=== PATIENT | female | born 1980 | race Caucasian/White ===

== ENCOUNTER 2020-09-24 16:02 | Emergency (ER) | payer OTHER ==
[~2020-09-24] VITALS: Ht 154.9 cm; Wt 77.1 kg
[2020-09-24 16:08] VITALS: Ht 154.9 cm; Wt 77.1 kg
[2020-09-24 18:19] VITALS: BP 127/86
== END 2020-09-24 18:19 | disposition home or self-care (01) ==
LOC: EDBD 16:02 → ED 16:02
DX: R04.0 Epistaxis (principal)